=== PATIENT | female | born 1985 | race Two or more races ===

== ENCOUNTER 2022-10-11 16:05 | Emergency (ER) | payer OTHER ==
[~2022-10-11] VITALS: Ht 165.1 cm; Wt 99.8 kg
[~2022-10-11 16:05] MED LIST: ANUSOL-HC25 MG RC; CATAFLAM50 MG; DECADRON P4 MG/ML-1M IH; GILTUSS TR TAB1 EACH PO; IBUPROFEN800 MG PO; MIRALAX510 GM PO; Motrin PO; ORPH100T PO; PROCARDIA PO; Pepcid 20 MG TABLET PO; Procardia 10MG CAP PO; RELAGESIC TABL1 EACH PO; Septra Ds Tablet PO; TORADOL60 MG IM; VISTARIL50 MG PO; VOLTAREM 50 MG PO; Vistaryl 50MG CAP PO; ZYRTEC10 MG PO; [UNRECOGNIZED DRUG - CODE] RC
[2022-10-11] MEDS ORDERED: SYNTHROID75 MCG PO (16:32)
== END 2022-10-11 20:22 | disposition home or self-care (01) ==
LOC: ER 16:05
DX: J06.9 Acute upper respiratory infection, unspecified (principal); Z20.822 Contact with and (suspected) exposure to COVID-19; Z88.8 Allergy status to other drugs, medicaments and biological substances